=== PATIENT | female | born 1970 | race Hispanic/Latino ===

== ENCOUNTER 2024-12-15 19:41 | Emergency (ER) | payer OTHER ==
[~2024-12-15] VITALS: Ht 165.1 cm; Wt 88.0 kg
[~2024-12-15 19:41] MED LIST: METHOCARBAMOL750 MG PO; NAPROSYN500 MG PO
[2024-12-15 19:42] VITALS: PULSE 62; RESP 18; TEMP 98.6
[2024-12-15] MEDS: IBUPROFEN 600 MG TAB PO STA (20:56)
[2024-12-15 23:19] VITALS: BP 127/84; PULSE 74; RESP 18; TEMP 98.3; O2SAT 99
== END 2024-12-15 22:15 | disposition home or self-care (01) ==
LOC: ER 19:47
DX: S93.492A Sprain of other ligament of left ankle, initial encounter (principal); X50.1XXA Overexertion from prolonged static or awkward postures, initial encounter; Y93.01 Activity, walking, marching and hiking; Y92.488 Other paved roadways as the place of occurrence of the external cause
CPT/HCPCS: 99284